=== PATIENT | female | born 1935 | race Caucasian/White ===

== ENCOUNTER 2020-09-13 05:51 | Inpatient (IN) ==
[~2020-09-13 05:51] MED LIST: VANCOMYCIN INJ 1,000 MG in SODIUM CHLORIDE 0.9% 250 ML IV STA
[2020-09-13] MEDS ORDERED: LACTATED RINGERS 1,000 ML IV SCH (06:30)
[2020-09-13 06:46] LABS: Bilirubin,Urine Negative (Negative); Blood, Urine Small mg/dL (Negative); Glucose,Urine (UA) Negative (Negative); Ketones,Urine Negative (Negative); Mucus,Urine Occasional /LPF (Occasional); Nitrite,Urine Negative (Negative); Protein,Urine Negative; RBC,Urine 10 /HPF (0-4); Squamous Epithelial Cell,Urine Occasional /HPF (0-10); Urine Appearance CLEAR (Clear); Urine Color Yellow (Yellow); Urine Specific Gravity 1.012 (1.001-1.035); WBC,Urine 2 /HPF (0-6)
[2020-09-13] MEDS ORDERED: DIAZEPAM 5 MG TABLET PO ONE (06:51)
[2020-09-13] MEDS ORDERED: FAMOTIDINE 20 MG TABLET PO ONE (06:51)
[2020-09-13] MEDS ORDERED: ACETAMINOPHEN 500 MG TABLET PO ONE (06:51)
[2020-09-13] MEDS ORDERED: GABAPENTIN 400 MG CAPSULE PO ONE (06:51)
[2020-09-13] MEDS ORDERED: DEXMEDETOMIDINE 200 MCG/2 ML VIAL ONE (07:03)
[2020-09-13] MEDS ORDERED: propofoL 200 MG/20 ML VIAL IV ONE (07:03)
[2020-09-13] MEDS ORDERED: MIDAZOLAM 2 MG/2 ML VIAL ONE (07:03)
[2020-09-13] MEDS ORDERED: ONDANSETRON 4 MG/2 ML VIAL ONE (07:07)
[2020-09-13] MEDS ORDERED: TRANEXAMIC ACID 1,000 MG/10 ML VIAL ONE (07:07)
[2020-09-13] MEDS ORDERED: LIDOCAINE 1% 5 ML VIAL ONE (07:19)
[2020-09-13] MEDS ORDERED: DEXAMETHASONE 4 MG/1 ML VIAL ONE (07:19)
[2020-09-13] MEDS ORDERED: ROPIVACAINE 0.5% 30 ML VIAL ONE (07:20)
[2020-09-13] MEDS ORDERED: PROMETHAZINE 25 MG/1 ML VIAL IM PRN (09:01)
[2020-09-13] MEDS ORDERED: BISACODYL 10 MG SUPP RECTAL PRN (09:01)
[2020-09-13] MEDS ORDERED: diphenhydrAMINE CAP 25 MG CAPSULE PO PRN (09:01)
[2020-09-13] MEDS ORDERED: TEMAZEPAM 7.5 MG CAPSULE PO PRN (09:01)
[2020-09-13] MEDS ORDERED: LACTULOSE 20 GM/30 ML UDCUP PO PRN (09:01)
[2020-09-13] MEDS ORDERED: MAGNESIUM HYDROXIDE SUSP 30 ML UDCUP PO PRN (09:01)
[2020-09-13] MEDS ORDERED: ONDANSETRON 4 MG/2 ML VIAL IV PRN ×2 (09:01→11:08)
[2020-09-13] MEDS ORDERED: MORPHINE 4 MG/1 ML VIAL IV PRN ×2 (09:01→09:27)
[2020-09-13] MEDS ORDERED: PHENYLEPHRINE 1 MG/10 ML SYRINGE IV ONE (09:10)
[2020-09-13] MEDS ORDERED: HYDROmorphone 2 MG/1 ML VIAL ONE (10:10)
[2020-09-13] MEDS ORDERED: SEVOFLURANE 1 UNIT/15 MINUTE INH ONE ×3 (10:29)
[2020-09-13] MEDS ORDERED: PROMETHAZINE INJ 25 MG in SODIUM CHLORIDE 0.9% 50 ML IV PRN (11:08)
[2020-09-13] MEDS ORDERED: diphenhydrAMINE 50 MG/1 ML VIAL IV PRN (11:08)
[2020-09-13] MEDS ORDERED: HYDROmorphone 2 MG/1 ML VIAL IV PRN (11:08)
[2020-09-13] MEDS ORDERED: MEPERIDINE 25 MG/1 ML VIAL IV PRN (11:08)
[2020-09-13] MEDS ORDERED: ceFAZolin 1,000 MG VIAL ONE (16:24)
[2020-09-13] MEDS: ceFAZolin 2,000 MG in PREMIX 1 EACH IV SCH ×2 (16:29→23:03)
[2020-09-13] MEDS: FONDAPARINUX 2.5 MG/0.5 ML SYRINGE SUBCUT SCH (20:19)
[2020-09-13] MEDS: DOCUSATE SODIUM 100 MG CAPSULE PO SCH (20:20)
[2020-09-13] MEDS: LATANOPROST 0.005% OPH SOLN 2.5 ML BOTTLE BOTH EYES SCH (20:20)
[2020-09-14 06:16] LABS: Basophils % 0.4 % (0.0-0.8); Eosinophils % 0.1 % (0.00-10.9); Hematocrit 26.1 VOL% (35.7-47.0); Hemoglobin 8.5 GM/DL (12.0-16.0); Immature Granulocytes % 0.5 %; Immature Granulocytes Absolute 0.06 #; Lymphocytes # 1.4 10*3/uL (1.4-4.0); Lymphocytes % 12.8 % (21.3-54.2); Mean Corpuscular HGB Conc 32.6 GM/DL (32-36); Mean Corpuscular Volume 81.8 FL (87-102); Mean Platelet Volume 9.9 FL (9.6-12.0); Monocytes % 13.6 % (1.7-12.7); Neutrophils % 72.6 % (38.7-73.9); Platelet Count 379 T/CUMM (130-400); Red Blood Count 3.19 MC/CUMM (3.8-5.5); White Blood Count 11.2 T/CUMM (4-12)
[2020-09-14 07:11] LABS: Calcium 8.7 MG/DL (8.5-10.1); Osmolality,Calculated 264.5 MOS/KG (273-304); Potassium 3.9 MMOL/L (3.5-5.1)
[2020-09-14] MEDS: DOCUSATE SODIUM 100 MG CAPSULE PO SCH ×2 (09:50→20:04)
[2020-09-14] MEDS: LOSARTAN 25 MG TABLET PO SCH (09:50)
[2020-09-14] MEDS: LATANOPROST 0.005% OPH SOLN 2.5 ML BOTTLE BOTH EYES SCH (20:05)
[2020-09-14] MEDS: FONDAPARINUX 2.5 MG/0.5 ML SYRINGE SUBCUT SCH (20:05)
[2020-09-15 06:51] LABS: Basophils % 0.3 % (0.0-0.8); Eosinophils # 0.1 10*3/uL (0.0-0.87); Eosinophils % 0.6 % (0.00-10.9); Hematocrit 26.9 VOL% (35.7-47.0); Hemoglobin 8.9 GM/DL (12.0-16.0); Immature Granulocytes % 0.8 %; Immature Granulocytes Absolute 0.09 #; Lymphocytes # 1.6 10*3/uL (1.4-4.0); Lymphocytes % 13.1 % (21.3-54.2); Mean Corpuscular HGB Conc 33.1 GM/DL (32-36); Mean Platelet Volume 10.5 FL (9.6-12.0); Monocytes % 12.5 % (1.7-12.7); Neutrophils % 72.7 % (38.7-73.9); Platelet Count 380 T/CUMM (130-400); Red Blood Count 3.28 MC/CUMM (3.8-5.5); Red Cell Distribution Width 13.1 % (9.3-17.3)
[2020-09-15] MEDS: LOSARTAN 25 MG TABLET PO SCH (08:12)
[2020-09-15] MEDS: DOCUSATE SODIUM 100 MG CAPSULE PO SCH ×2 (08:12→20:29)
[2020-09-15] MEDS: FONDAPARINUX 2.5 MG/0.5 ML SYRINGE SUBCUT SCH (20:30)
[2020-09-15] MEDS: LATANOPROST 0.005% OPH SOLN 2.5 ML BOTTLE BOTH EYES SCH (20:31)
[2020-09-16] MEDS: DOCUSATE SODIUM 100 MG CAPSULE PO SCH (08:25)
[2020-09-16] MEDS: LOSARTAN 25 MG TABLET PO SCH (08:26)
[2020-09-16 12:06] VITALS: BP 109/61
== END 2020-09-16 13:51 | disposition swing bed (61) | DRG 470 ==
LOC: N.OR 05:51 → N.SDSINP 05:53 → N.3E 18:14
PROVIDERS: ADMIT Orthopaedic Surgery; ATTEND Orthopaedic Surgery

== ENCOUNTER 2021-01-09 05:51 | Inpatient (IN) ==
[2021-01-09] MEDS ORDERED: VANCOMYCIN INJ 1,000 MG in SODIUM CHLORIDE 0.9% 250 ML IV ONE (06:00)
[2021-01-09] MEDS ORDERED: LIDOCAINE 2% 5 ML VIAL ONE (06:14)
[2021-01-09] MEDS ORDERED: MIDAZOLAM 2 MG/2 ML VIAL ONE (06:14)
[2021-01-09] MEDS ORDERED: propofoL 200 MG/20 ML VIAL IV ONE (06:14)
[2021-01-09] MEDS ORDERED: fentaNYL 100 MCG/2 ML VIAL ONE (06:15)
[2021-01-09] MEDS ORDERED: KETAMINE 500 MG/10 ML VIAL ONE (06:15)
[2021-01-09] MEDS ORDERED: PHENYLEPHRINE 10 MG/1 ML VIAL IV ONE (06:17)
[2021-01-09] MEDS ORDERED: DEXAMETHASONE 4 MG/1 ML VIAL ONE (06:38)
[2021-01-09] MEDS ORDERED: ROPIVACAINE 0.5% 30 ML VIAL ONE (06:38)
[2021-01-09] MEDS ORDERED: LACTATED RINGERS 1,000 ML IV SCH (07:00)
[2021-01-09] MEDS ORDERED: LACTULOSE 20 GM/30 ML UDCUP PO PRN (07:08)
[2021-01-09] MEDS ORDERED: diphenhydrAMINE CAP 25 MG CAPSULE PO PRN (07:08)
[2021-01-09] MEDS ORDERED: PROMETHAZINE 25 MG/1 ML VIAL IM PRN (07:08)
[2021-01-09] MEDS ORDERED: BISACODYL 10 MG SUPP RECTAL PRN (07:08)
[2021-01-09] MEDS ORDERED: ONDANSETRON 4 MG/2 ML VIAL IV PRN ×2 (07:08→08:39)
[2021-01-09] MEDS ORDERED: MORPHINE 4 MG/1 ML VIAL IV PRN (07:25)
[2021-01-09] MEDS ORDERED: BUPIVACAINE SPINAL 0.75% 2 ML AMP SPINAL ONE (07:56)
[2021-01-09] MEDS ORDERED: ONDANSETRON 4 MG/2 ML VIAL ONE (07:56)
[2021-01-09] MEDS ORDERED: diphenhydrAMINE 50 MG/1 ML VIAL IV PRN (08:39)
[2021-01-09] MEDS ORDERED: MEPERIDINE 25 MG/1 ML VIAL IV PRN (08:39)
[2021-01-09] MEDS ORDERED: PROMETHAZINE INJ 25 MG in SODIUM CHLORIDE 0.9% 50 ML IV PRN (08:39)
[2021-01-09] MEDS: DOCUSATE SODIUM 100 MG CAPSULE PO SCH ×2 (10:45→20:22)
[2021-01-09] MEDS: LOSARTAN 25 MG TABLET PO SCH (10:46)
[2021-01-09] MEDS ORDERED: HYDROmorphone 2 MG/1 ML VIAL ONE (13:08)
[2021-01-09] MEDS: HYDROmorphone 2 MG/1 ML VIAL IV PRN ×4 (13:10→13:25)
[2021-01-09] MEDS: MORPHINE 4 MG/1 ML VIAL IV PRN (18:19)
[2021-01-09] MEDS: FONDAPARINUX 2.5 MG/0.5 ML SYRINGE SUBCUT SCH (18:19)
[2021-01-09] MEDS: LATANOPROST 0.005% OPH SOLN 2.5 ML BOTTLE BOTH EYES SCH (21:35)
[2021-01-10 05:27] LABS: Basophils # 0.1 10*3/uL (0.0-0.2); Basophils % 0.6 % (0.0-0.8); Eosinophils % 0.5 % (0.00-10.9); Hematocrit 26.4 VOL% (35.7-47.0); Hemoglobin 8.4 GM/DL (12.0-16.0); Immature Granulocytes % 0.4 %; Immature Granulocytes Absolute 0.03 #; Lymphocytes % 23.3 % (21.3-54.2); Mean Corpuscular HGB Conc 31.8 GM/DL (32-36); Mean Corpuscular Volume 81.7 FL (87-102); Mean Platelet Volume 10.9 FL (9.6-12.0); Monocytes % 14.3 % (1.7-12.7); Neutrophils % 60.9 % (38.7-73.9); Platelet Count 260 T/CUMM (130-400); Red Blood Count 3.23 MC/CUMM (3.8-5.5); Red Cell Distribution Width 14.5 % (9.3-17.3); White Blood Count 8.4 T/CUMM (4-12)
[2021-01-10 05:51] LABS: Calcium 8.4 MG/DL (8.5-10.1); Osmolality,Calculated 274.7 MOS/KG (273-304); Potassium 3.9 MMOL/L (3.5-5.1)
[2021-01-10] MEDS: LOSARTAN 25 MG TABLET PO SCH (09:36)
[2021-01-10] MEDS: ASPIRIN EC 81 MG TABLET PO SCH (09:36)
[2021-01-10] MEDS: DOCUSATE SODIUM 100 MG CAPSULE PO SCH ×2 (09:36→21:03)
[2021-01-10] MEDS: MORPHINE 4 MG/1 ML VIAL IV PRN (10:06)
[2021-01-10] MEDS: FONDAPARINUX 2.5 MG/0.5 ML SYRINGE SUBCUT SCH (17:43)
[2021-01-10] MEDS: TEMAZEPAM 7.5 MG CAPSULE PO PRN (22:45)
[2021-01-10] MEDS: LATANOPROST 0.005% OPH SOLN 2.5 ML BOTTLE BOTH EYES SCH (23:16)
[2021-01-11 05:53] LABS: Basophils # 0.1 10*3/uL (0.0-0.2); Basophils % 0.6 % (0.0-0.8); Eosinophils # 0.2 10*3/uL (0.0-0.87); Eosinophils % 2.8 % (0.00-10.9); Hematocrit 25.4 VOL% (35.7-47.0); Hemoglobin 8.3 GM/DL (12.0-16.0); Immature Granulocytes % 0.6 %; Immature Granulocytes Absolute 0.05 #; Lymphocytes # 1.3 10*3/uL (1.4-4.0); Lymphocytes % 14.9 % (21.3-54.2); Mean Corpuscular HGB Conc 32.7 GM/DL (32-36); Mean Corpuscular Volume 81.7 FL (87-102); Monocytes % 11.9 % (1.7-12.7); Neutrophils % 69.2 % (38.7-73.9); Platelet Count 241 T/CUMM (130-400); Red Blood Count 3.11 MC/CUMM (3.8-5.5); Red Cell Distribution Width 14.6 % (9.3-17.3); White Blood Count 8.5 T/CUMM (4-12)
[2021-01-11] MEDS ORDERED: MIDAZOLAM 2 MG/2 ML VIAL ONE (05:58)
[2021-01-11] MEDS ORDERED: fentaNYL 100 MCG/2 ML VIAL ONE (05:58)
[2021-01-11] MEDS ORDERED: ROCURONIUM 50 MG/5 ML VIAL IV ONE (05:58)
[2021-01-11] MEDS ORDERED: LIDOCAINE 2% 5 ML VIAL ONE (05:58)
[2021-01-11] MEDS ORDERED: propofoL 200 MG/20 ML VIAL IV ONE (05:58)
[2021-01-11] MEDS ORDERED: DEXAMETHASONE 4 MG/1 ML VIAL ONE (08:00)
[2021-01-11] MEDS ORDERED: ONDANSETRON 4 MG/2 ML VIAL ONE (08:00)
[2021-01-11] MEDS ORDERED: PHENYLEPHRINE 1 MG/10 ML SYRINGE IV ONE (08:00)
[2021-01-11] MEDS ORDERED: LACTATED RINGERS 2,000 ML IV ONE (08:20)
[2021-01-11] MEDS ORDERED: SEVOFLURANE 1 UNIT/15 MINUTE INH ONE ×6 (08:20→09:35)
[2021-01-11] MEDS ORDERED: NEOSTIGMINE 10 MG/10 ML VIAL ONE ×2 (09:00→09:01)
[2021-01-11] MEDS ORDERED: GLYCOPYRROLATE 0.4 MG/2 ML VIAL ONE (09:35)
[2021-01-11] MEDS: LOSARTAN 25 MG TABLET PO SCH (09:57)
[2021-01-11] MEDS: ASPIRIN EC 81 MG TABLET PO SCH (09:57)
[2021-01-11] MEDS: DOCUSATE SODIUM 100 MG CAPSULE PO SCH ×2 (09:57→20:29)
[2021-01-11] MEDS: MAGNESIUM HYDROXIDE SUSP 30 ML UDCUP PO PRN (09:57)
[2021-01-11] MEDS: MULTIVITAMIN (INTRINSIC) CAPSULE PO SCH (12:09)
[2021-01-11] MEDS: FONDAPARINUX 2.5 MG/0.5 ML SYRINGE SUBCUT SCH (17:57)
[2021-01-11] MEDS: LATANOPROST 0.005% OPH SOLN 2.5 ML BOTTLE BOTH EYES SCH (20:29)
[2021-01-11] MEDS: TEMAZEPAM 7.5 MG CAPSULE PO PRN (20:29)
[2021-01-12 05:45] LABS: Basophils # 0.1 10*3/uL (0.0-0.2); Basophils % 0.7 % (0.0-0.8); Eosinophils # 0.3 10*3/uL (0.0-0.87); Eosinophils % 3.8 % (0.00-10.9); Hematocrit 25.1 VOL% (35.7-47.0); Hemoglobin 8.1 GM/DL (12.0-16.0); Immature Granulocytes % 0.6 %; Immature Granulocytes Absolute 0.04 #; Lymphocytes # 1.5 10*3/uL (1.4-4.0); Lymphocytes % 21.3 % (21.3-54.2); Mean Corpuscular HGB Conc 32.3 GM/DL (32-36); Mean Platelet Volume 10.9 FL (9.6-12.0); Monocytes % 11.4 % (1.7-12.7); Neutrophils % 62.2 % (38.7-73.9); Platelet Count 255 T/CUMM (130-400); Red Blood Count 3.06 MC/CUMM (3.8-5.5); Red Cell Distribution Width 14.8 % (9.3-17.3); White Blood Count 7.1 T/CUMM (4-12)
[2021-01-12 06:12] LABS: Eosinophils 5 % (0-10); Hypochromasia 1+; Lymphocytes 19 % (20-55); Microcytosis 1+; Ovalocytes Slight; Platelet Estimate Adequate; Segmented Neutrophils 69 % (50-85); Total Cells Counted 100
[2021-01-12] MEDS: LOSARTAN 25 MG TABLET PO SCH (08:14)
[2021-01-12] MEDS: MULTIVITAMIN (INTRINSIC) CAPSULE PO SCH (08:15)
[2021-01-12] MEDS: ASPIRIN EC 81 MG TABLET PO SCH (08:15)
[2021-01-12] MEDS: DOCUSATE SODIUM 100 MG CAPSULE PO SCH (08:15)
[2021-01-12] MEDS: MAGNESIUM HYDROXIDE SUSP 30 ML UDCUP PO PRN (10:16)
[2021-01-12 11:34] VITALS: BP 110/63
== END 2021-01-12 13:10 | disposition swing bed (61) | DRG 470 ==
LOC: N.OR 05:51 → N.SDSINP 05:54 → N.3E 17:47
PROVIDERS: ADMIT Orthopaedic Surgery; ATTEND Orthopaedic Surgery

== ENCOUNTER 2021-05-15 05:54 | Inpatient (IN) ==
[2021-05-15] MEDS ORDERED: FAMOTIDINE 20 MG TABLET PO ONE (06:00)
[2021-05-15] MEDS ORDERED: ACETAMINOPHEN 500 MG TABLET PO ONE (06:00)
[2021-05-15] MEDS ORDERED: GABAPENTIN 400 MG CAPSULE PO ONE (06:00)
[2021-05-15] MEDS ORDERED: fentaNYL 100 MCG/2 ML VIAL ONE (06:41)
[2021-05-15] MEDS ORDERED: MIDAZOLAM 2 MG/2 ML VIAL ONE (06:41)
[2021-05-15] MEDS ORDERED: LIDOCAINE 2% 5 ML VIAL ONE (06:42)
[2021-05-15] MEDS ORDERED: propofoL 200 MG/20 ML VIAL IV ONE ×2 (06:42→07:00)
[2021-05-15] MEDS ORDERED: DIAZEPAM 5 MG TABLET PO ONE ×2 (06:43→06:46)
[2021-05-15] MEDS ORDERED: LACTATED RINGERS 1,000 ML IV SCH (07:00)
[2021-05-15] MEDS ORDERED: VANCOMYCIN INJ 1,000 MG in SODIUM CHLORIDE 0.9% 250 ML IV ONE (07:00)
[2021-05-15] MEDS ORDERED: SODIUM CHLORIDE 0.9% 250 ML IV ONE (07:00)
[2021-05-15] MEDS ORDERED: BUPIVACAINE SPINAL 0.75% 2 ML AMP SPINAL ONE (07:05)
[2021-05-15] MEDS ORDERED: BUPIVACAINE MPF 0.25% 30 ML VIAL ONE (07:12)
[2021-05-15] MEDS ORDERED: DEXAMETHASONE 4 MG/1 ML VIAL ONE (07:12)
[2021-05-15] MEDS ORDERED: MAGNESIUM HYDROXIDE SUSP 30 ML UDCUP PO PRN (08:51)
[2021-05-15] MEDS ORDERED: MORPHINE 2 MG/1 ML SYRINGE IV PRN ×2 (08:51→14:24)
[2021-05-15] MEDS ORDERED: PROMETHAZINE 25 MG/1 ML VIAL IM PRN (08:51)
[2021-05-15] MEDS ORDERED: ONDANSETRON 4 MG/2 ML VIAL IV PRN (08:51)
[2021-05-15] MEDS ORDERED: BISACODYL 10 MG SUPP RECTAL PRN (08:51)
[2021-05-15] MEDS ORDERED: LACTULOSE 20 GM/30 ML UDCUP PO PRN (08:51)
[2021-05-15] MEDS ORDERED: PHENYLEPHRINE 10 MG/1 ML VIAL IV ONE (09:00)
[2021-05-15] MEDS ORDERED: SODIUM CHLORIDE 0.9% 100 ML IV ONE (09:00)
[2021-05-15] MEDS ORDERED: TRANEXAMIC ACID 1,000 MG/10 ML VIAL ONE (09:20)
[2021-05-15] MEDS ORDERED: ePHEDrine 50 MG/ML VIAL ONE (09:21)
[2021-05-15] MEDS ORDERED: BACITRACIN OINT 0.9 GM PACK TOP ONE (09:32)
[2021-05-15] MEDS ORDERED: LACTATED RINGERS 1,000 ML IV ONE (09:34)
[2021-05-15 11:09] LABS: Bilirubin,Urine Negative (Negative); Blood, Urine Small mg/dL (Negative); Glucose,Urine (UA) Negative (Negative); Ketones,Urine Negative (Negative); Nitrite,Urine Negative (Negative); Protein,Urine Negative; RBC,Urine 2 /HPF (0-4); Urine Appearance CLEAR (Clear); Urine Color Yellow (Yellow); Urine Specific Gravity 1.009 (1.001-1.035); Urine Urobilinogen < 2.0 EU/DL (0.2-1.0)
[2021-05-15] MEDS: DOCUSATE SODIUM 100 MG CAPSULE PO SCH (21:13)
[2021-05-15] MEDS: FONDAPARINUX 2.5 MG/0.5 ML SYRINGE SUBCUT SCH (21:13)
[2021-05-15] MEDS: TEMAZEPAM 7.5 MG CAPSULE PO PRN (21:14)
[2021-05-15] MEDS: LATANOPROST 0.005% OPH SOLN 2.5 ML BOTTLE BOTH EYES SCH (22:04)
[2021-05-16] MEDS: diphenhydrAMINE CAP 25 MG CAPSULE PO PRN (02:08)
[2021-05-16 06:58] LABS: Basophils % 0.4 % (0.0-0.8); Eosinophils # 0.1 10*3/uL (0.0-0.87); Eosinophils % 0.7 % (0.00-10.9); Hematocrit 24.4 VOL% (35.7-47.0); Hemoglobin 7.8 GM/DL (12.0-16.0); Immature Granulocytes % 0.6 %; Immature Granulocytes Absolute 0.05 #; Lymphocytes # 1.6 10*3/uL (1.4-4.0); Lymphocytes % 19.1 % (21.3-54.2); Mean Corpuscular Volume 86.8 FL (87-102); Mean Platelet Volume 10.8 FL (9.6-12.0); Monocytes % 10.3 % (1.7-12.7); Neutrophils % 68.9 % (38.7-73.9); Platelet Count 205 T/CUMM (130-400); Red Blood Count 2.81 MC/CUMM (3.8-5.5); Red Cell Distribution Width 12.9 % (9.3-17.3); White Blood Count 8.2 T/CUMM (4-12)
[2021-05-16 07:33] LABS: Hypochromasia 1+; Microcytosis 1+
[2021-05-16 07:34] LABS: Ovalocytes Slight; Platelet Estimate Normal
[2021-05-16 07:38] LABS: Calcium 8.1 MG/DL (8.5-10.1); Osmolality,Calculated 275.7 MOS/KG (273-304); Potassium 3.6 MMOL/L (3.5-5.1)
[2021-05-16] MEDS ORDERED: SODIUM CHLORIDE 0.9% 1,000 ML IV PRN (08:36)
[2021-05-16] MEDS: LOSARTAN 25 MG TABLET PO SCH (08:56)
[2021-05-16] MEDS: DOCUSATE SODIUM 100 MG CAPSULE PO SCH ×2 (08:56→21:05)
[2021-05-16] MEDS: ASPIRIN CHEW 81 MG TABLET PO SCH (08:58)
[2021-05-16 20:02] LABS: Hematocrit 31.7 VOL% (35.7-47.0); Hemoglobin 10.1 GM/DL (12.0-16.0)
[2021-05-16] MEDS: LATANOPROST 0.005% OPH SOLN 2.5 ML BOTTLE BOTH EYES SCH (21:05)
[2021-05-16] MEDS: FONDAPARINUX 2.5 MG/0.5 ML SYRINGE SUBCUT SCH (21:05)
[2021-05-16] MEDS: OMEPRAZOLE ODT 20 MG TABLET PO PRN (21:09)
[2021-05-16] MEDS: TEMAZEPAM 7.5 MG CAPSULE PO PRN (21:16)
[2021-05-17 05:55] LABS: Basophils # 0.1 10*3/uL (0.0-0.2); Basophils % 0.6 % (0.0-0.8); Eosinophils # 0.3 10*3/uL (0.0-0.87); Eosinophils % 2.3 % (0.00-10.9); Hematocrit 33.6 VOL% (35.7-47.0); Hemoglobin 10.8 GM/DL (12.0-16.0); Immature Granulocytes % 1.2 %; Immature Granulocytes Absolute 0.13 #; Lymphocytes # 1.5 10*3/uL (1.4-4.0); Lymphocytes % 14.2 % (21.3-54.2); Mean Corpuscular HGB Conc 32.1 GM/DL (32-36); Mean Corpuscular Volume 88.9 FL (87-102); Mean Platelet Volume 10.5 FL (9.6-12.0); Monocytes % 12.8 % (1.7-12.7); Neutrophils % 68.9 % (38.7-73.9); Platelet Count 208 T/CUMM (130-400); Red Blood Count 3.78 MC/CUMM (3.8-5.5); Red Cell Distribution Width 13.4 % (9.3-17.3); White Blood Count 10.8 T/CUMM (4-12)
[2021-05-17] MEDS: DOCUSATE SODIUM 100 MG CAPSULE PO SCH ×2 (09:46→21:20)
[2021-05-17] MEDS: ASPIRIN CHEW 81 MG TABLET PO SCH (09:46)
[2021-05-17] MEDS: LOSARTAN 25 MG TABLET PO SCH (09:47)
[2021-05-17] MEDS: OMEPRAZOLE ODT 20 MG TABLET PO PRN (09:47)
[2021-05-17] MEDS: diphenhydrAMINE CAP 25 MG CAPSULE PO PRN (21:20)
[2021-05-17] MEDS: FONDAPARINUX 2.5 MG/0.5 ML SYRINGE SUBCUT SCH (21:20)
[2021-05-17] MEDS: LATANOPROST 0.005% OPH SOLN 2.5 ML BOTTLE BOTH EYES SCH (21:21)
[2021-05-18 05:47] LABS: Basophils # 0.1 10*3/uL (0.0-0.2); Basophils % 0.5 % (0.0-0.8); Eosinophils # 0.3 10*3/uL (0.0-0.87); Eosinophils % 3.7 % (0.00-10.9); Hematocrit 34.8 VOL% (35.7-47.0); Hemoglobin 11.2 GM/DL (12.0-16.0); Immature Granulocytes % 1.3 %; Immature Granulocytes Absolute 0.12 #; Lymphocytes # 1.1 10*3/uL (1.4-4.0); Lymphocytes % 12.1 % (21.3-54.2); Mean Corpuscular HGB Conc 32.2 GM/DL (32-36); Mean Corpuscular Volume 88.1 FL (87-102); Mean Platelet Volume 10.9 FL (9.6-12.0); Monocytes % 11.9 % (1.7-12.7); Neutrophils % 70.5 % (38.7-73.9); Platelet Count 226 T/CUMM (130-400); Red Blood Count 3.95 MC/CUMM (3.8-5.5); Red Cell Distribution Width 13.4 % (9.3-17.3); White Blood Count 9.2 T/CUMM (4-12)
[2021-05-18] MEDS: LOSARTAN 25 MG TABLET PO SCH (08:11)
[2021-05-18] MEDS: ASPIRIN CHEW 81 MG TABLET PO SCH (08:11)
[2021-05-18] MEDS: DOCUSATE SODIUM 100 MG CAPSULE PO SCH (08:11)
[2021-05-18 11:25] VITALS: BP 102/58
== END 2021-05-18 11:42 | DRG 470 ==
LOC: N.OR 05:54 → N.SDSINP 05:56 → EDSTATUS 10:00 → N.3E 14:09
PROVIDERS: ADMIT Orthopaedic Surgery; ATTEND Orthopaedic Surgery